=== PATIENT | male | born 1950 | race Caucasian/White ===

== ENCOUNTER 2020-07-14 06:27 | Day surgery (SDC) | payer OTHER ==
[~2020-07-14] VITALS: Ht 175.3 cm; Wt 84.2 kg
[~2020-07-14 06:27] MED LIST: ALBU90OI; ALBU90OI61 INH; ASPI81EC PO; ASPIR 8181 MG PO; ATOR20 PO; AZIT250 PO; Adult Low Dose81 MG PO; CEPH500 PO; FLUT.05NI; Flovent Diskus50 MCG; HYDCHL25 PO; HYDROCHLOROTHIA25 MG PO; IBU800 MG PO; IBUP800 PO; ICAPS AREDS2 C1 EACH PO; METAMUCIL POWD575 GM PO; METO25ER PO; METO50 PO; METO50ER PO; MULVITA; OMEP10ER PO; OMEP20ER PO; OMEPRAZOLE20 M2 PO; ONDA4ODT MM; Omeprazole20 M1 PO; PANT40 PO; PRED20 PO; PROAIR RESPICL90 MCG INH; REVATIO20 MG PO; Roxicodone5 MG PO; Toprol Xl25 MG PO; [UNRECOGNIZED DRUG - CODE]; [UNRECOGNIZED DRUG - OTHER] INJ
--- NOTE | 2020-07-14 06:58 | NUR ---
07/14/20 0658 NELLI GUEVARA pt in bed. iv in place and patent. CONF ALLERGIES AND MEDICATIONS. ENGAGED IN PRE OP TEACHING. ALL QUESTIONS ASKED AND ANSWERED.
== END 2020-07-14 08:10 | disposition home or self-care (01) ==
LOC: ORSCSDS 06:27
PROVIDERS: Ophthalmology
PROC: 08RJ3JZ Replacement of Right Lens with Synthetic Substitute, Percutaneous Approach (ICD-10-PCS; principal; 2020-07-14 07:30)
DX: H25.11 Age-related nuclear cataract, right eye (principal); I10 Essential (primary) hypertension; G47.33 Obstructive sleep apnea (adult) (pediatric); J45.909 Unspecified asthma, uncomplicated; Z79.899 Other long term (current) drug therapy; Z79.82 Long term (current) use of aspirin
CPT/HCPCS: J2001; J2250; J3010; J3301; J7040; V2632

== ENCOUNTER 2020-08-17 06:13 | Day surgery (SDC) | payer OTHER ==
[~2020-08-17] VITALS: Ht 175.3 cm; Wt 83.8 kg
== END 2020-08-17 08:23 | disposition home or self-care (01) ==
LOC: ORSCSDS 06:13
PROVIDERS: Ophthalmology
PROC: 08RK3JZ Replacement of Left Lens with Synthetic Substitute, Percutaneous Approach (ICD-10-PCS; principal; 2020-08-17 07:30)
DX: H25.12 Age-related nuclear cataract, left eye (principal); I10 Essential (primary) hypertension; G47.33 Obstructive sleep apnea (adult) (pediatric); K21.9 Gastro-esophageal reflux disease without esophagitis; Z79.899 Other long term (current) drug therapy
CPT/HCPCS: J2001; J2250; J3010; J3301; J7040; V2632

== ENCOUNTER → 2021-03-17 | Outpatient (CLI) | payer OTHER | LOC: LAB SHORT 10:15 → LAB 10:15 | DX: L02.423 Furuncle of right upper limb (principal); L02.222 Furuncle of back [any part, except buttock and flank]; L82.1 Other seborrheic keratosis; L57.8 Other skin changes due to chronic exposure to nonionizing radiation; L85.3 Xerosis cutis; Z71.89 Other specified counseling; Z88.0 Allergy status to penicillin; Z88.1 Allergy status to other antibiotic agents; Z88.2 Allergy status to sulfonamides | CPT/HCPCS: 87070; 87077; 87147; 87186; 87205 ==

== ENCOUNTER 2021-08-27 11:47 | Inpatient (IN) | payer MEDICARE, OTHER ==
[~2021-08-27] VITALS: Ht 172.7 cm; Wt 86.4 kg
[~2021-08-27 11:47] MED LIST changes: -LEVAQUIN750 MG PO; -LOSA25 PO
[2021-08-27 13:07] LABS: BASOPHILS ABSOLUTE AUTO 0.02 K/mm3 (0.00-0.23); BASOPHILS PERCENT AUTO 0 % (0-2); EOSINOPHILS ABSOLUTE AUTO 0.03 K/mm3 (0.00-0.68); EOSINOPHILS PERCENT AUTO 0 % (0-6); Hematocrit 37.5 % (37.0-53.0); Hemoglobin 13.1 g/dL (13.5-17.5); IMMATURE GRAN ABSOLUTE AUTO 0.05 K/mm3 (0.00-0.10); IMMATURE GRAN PERCENT AUTO 0 % (0-1); LYMPHOCYTES ABSOLUTE AUTO 1.02 K/mm3 (0.84-5.20); LYMPHOCYTES PERCENT AUTO 9 % (21-46); MONOCYTES ABSOLUTE AUTO 1.07 K/mm3 (0.16-1.47); MONOCYTES PERCENT AUTO 9 % (4-13); Mean Corpuscular HGB 33.7 pg (26.0-34.0); Mean Corpuscular HGB Conc 34.9 g/dL (31.5-36.5); Mean Corpuscular Volume 96 fL (80-100); NEUTROPHILS ABSOLUTE AUTO 9.75 K/mm3 (1.96-9.15); NEUTROPHILS PERCENT AUTO 82 % (41-73); Platelet Count 137 K/mm3 (150-400); RDW Coefficient Variation 11.6 % (11.7-14.2); RDW Standard Deviation 40.1 fL (35.1-46.3); Red Blood Cell Count 3.89 M/mm3 (4.30-5.90); White Blood Cell Count 11.94 K/mm3 (4.00-11.30)
[2021-08-27 13:11] LABS: Influenza A, PCR NEGATIVE (NEGATIVE); Influenza B, PCR NEGATIVE (NEGATIVE); Resp Syncytial Virus, PCR NEGATIVE (NEGATIVE); SARS-Cov-2 (COVID-19) PCR, MMC NEGATIVE (NEGATIVE)
[2021-08-27 13:27] LABS: Albumin, Blood 3.9 g/dL (3.4-5.0); Albumin/Globulin Ratio 1.1 (0.8-1.8); Bilirubin, Total 1.6 mg/dL (0.1-1.0); Bun/Creatinine Ratio 19.7 (12.0-20.0); Calcium, Blood 8.6 mg/dL (8.5-10.1); Creatinine, Blood 1.47 mg/dL (0.60-1.20); Globulin, Blood 3.5 g/dL (2.2-4.0); Potassium, Blood 4.5 mmol/L (3.5-5.5); Total Protein, Blood 7.4 g/dL (6.4-8.2)
--- NOTE | 2021-08-28 00:26 | NUR ---
FEBRILE PT TEMPERATURE CHECKED AT MIDNIGHT AND ELEVATED AGAIN AT 102.9 ORALLY. PT WAS SLEEPING PRIOR TO BEING WOKEN TO CHECK TEMPERATURE. ICE PACKS PLACED TO ARMPITS, NECK, AND GROIN. IBUPROFEN 600 MG ADMINISTERED. PT COMPLAINING OF CRAMPS IN LEGS AND RIBS.
--- NOTE | 2021-08-28 04:46 | NUR ---
SHIFT SUMMARY PT NEW ED ADMIT THIS EVENING. FEBRILE UPON ARRIVAL BUT TRENDED DOWN AFTER TORADOL GIVEN IN ED. FEVER RETURNED LATER IN THE EVENING, READING 102.9. MEDICATED W/ 600 MG IBUPROFEN. PT REPORTING SOME CRAMPING IN LEGS AND RIBS WHEN INITIALLY BEING WOKEN TO TAKE TEMPERATURE. LASTED BRIEFLY. TEMPERATURE THIS AM 98.8. NO COMPLAINTS OF NAUSEA OR PAIN. ASIDE FROM INTERMITTENT FEVER VITAL SIGNS HAVE REMAINED STABLE.
--- NOTE | 2021-08-28 05:23 | NUR ---
R SIDE OF NECK/THROAT NOTED TO BE SWOLLEN. NOT AFFECTING PT'S SWALLOWING. PT REPORTS R EAR SWOLLEN THIS AM WELL.
[2021-08-28 07:39] LABS: BASOPHILS ABSOLUTE AUTO 0.02 K/mm3 (0.00-0.23); BASOPHILS PERCENT AUTO 0 % (0-2); EOSINOPHILS ABSOLUTE AUTO 0.02 K/mm3 (0.00-0.68); EOSINOPHILS PERCENT AUTO 0 % (0-6); Hematocrit 33.1 % (37.0-53.0); Hemoglobin 11.6 g/dL (13.5-17.5); IMMATURE GRAN ABSOLUTE AUTO 0.01 K/mm3 (0.00-0.10); IMMATURE GRAN PERCENT AUTO 0 % (0-1); LYMPHOCYTES ABSOLUTE AUTO 0.81 K/mm3 (0.84-5.20); LYMPHOCYTES PERCENT AUTO 15 % (21-46); MONOCYTES PERCENT AUTO 10 % (4-13); Mean Corpuscular HGB 33.7 pg (26.0-34.0); Mean Corpuscular Volume 96 fL (80-100); NEUTROPHILS ABSOLUTE AUTO 3.91 K/mm3 (1.96-9.15); NEUTROPHILS PERCENT AUTO 74 % (41-73); Platelet Count 107 K/mm3 (150-400); RDW Coefficient Variation 11.6 % (11.7-14.2); RDW Standard Deviation 40.3 fL (35.1-46.3); Red Blood Cell Count 3.44 M/mm3 (4.30-5.90); White Blood Cell Count 5.27 K/mm3 (4.00-11.30)
[2021-08-28 08:02] LABS: Alanine Aminotransfer (ALT/SGP 76 U/L (12-78); Albumin, Blood 3.2 g/dL (3.4-5.0); Albumin/Globulin Ratio 0.9 (0.8-1.8); Alk Phos 54 U/L (50-136); Anion Gap 5 mmol/L (6-16); Aspartate Aminotrans (AST/SGOT 55 U/L (12-37); Bilirubin, Total 2.2 mg/dL (0.1-1.0); Blood Urea Nitrogen 21 mg/dL (8-24); Bun/Creatinine Ratio 19.1 (12.0-20.0); CO2, Blood 27 mmol/L (21-32); Calcium, Blood 8.1 mg/dL (8.5-10.1); Chloride, Blood 106 mmol/L (98-108); Globulin, Blood 3.4 g/dL (2.2-4.0); Glomerular Filtration Rate >60 (60-); Glucose, Blood 108 mg/dL (70-99); Potassium, Blood 3.6 mmol/L (3.5-5.5); Sodium, Blood 138 mmol/L (136-145); Total Protein, Blood 6.6 g/dL (6.4-8.2)
[2021-08-28 12:08] LABS: HIV AB/P24 AG SCREEN Non Reactive (Non Reactive)
--- NOTE | 2021-08-28 18:29 | NUR ---
SHIFT SUMMARY PT INDEPENDENT IN ROOM. DRINKING WELL. HIGHEST TEMP TODAY WAS 101.4. IBUPROFEN DECREASED TEMP. REPORTED THIS EVENING BEGINNING TO SWEAT. BP ELEVATED AND SPOKE WITH MD AND MEDICATED. DENIES NAUSEA.
--- NOTE | 2021-08-29 04:43 | NUR ---
SHIFT SUMMARY PT FEELING OVERALL WELL. SWELLING APPEARS WORSE THIS EVENING FROM NIGHT BEFORE. NOW IN NECK, EAR, AND SIDE OF FACE. HOT COMPRESSES PROVIDED AND HEATING PAD TO AID IN DECREASE OF SWELLING. PT USED HEAT OFF AND ON THROUGHOUT THE NIGHT. TEMPERATURE IMPROVED THIS EVENING. SLIGHTLY ELEVATED ONCE AT 100.4 BUT CAME DOWN WELL WITH IBUPROFEN. AFEBRILE WITH OTHER CHECKS. BLOOD PRESSURE IMPROVED. VITAL SIGNS STABLE. WILL CONTINUE TO MONITOR.
[2021-08-29 10:09] LABS: HBSAG SCREEN Negative (Negative); HEP B CORE AB, TOT Negative (Negative); HEP C VIRUS AB <0.1 (0.0-0.9)
[2021-08-29] MEDS ORDERED: LEVAQUIN750 MG PO ×2 (12:38)
[2021-08-29] MEDS ORDERED: LOSA25 PO ×2 (12:39)
--- NOTE | 2021-08-29 15:23 | NUR ---
PT DISCHARGED 1300 WITH DC INSTRUCTIONS. RX FAXED TO [facility] AND PT WILL COMPLETE ABX ORDERED AND OTC PROBIOTICS. IV DC'D X2, RAC AND LF, RAC NOT DOCUMENTED BEING INSERTED. BOTH IV DC'D WNL. SENT HOME WITH BELONGINGS, [facility] STAFF ESCORT OUT TO CAR.
== END 2021-08-29 13:58 | disposition home or self-care (01) | DRG 872 ==
LOC: ER 11:47 → ERHOLD 16:49 → MEDS 18:50 → ENPENDDIS 08-29 11:34 → MEDS 08-29 13:58
PROVIDERS: Family Medicine; Physician Assistant; ADMIT Internal Medicine
DX: A41.9 Sepsis, unspecified organism (principal); E87.2 Acidosis; N17.9 Acute kidney failure, unspecified; R65.20 Severe sepsis without septic shock; Z23 Encounter for immunization; Z20.822 Contact with and (suspected) exposure to COVID-19; R74.01 Elevation of levels of liver transaminase levels; I10 Essential (primary) hypertension; J45.909 Unspecified asthma, uncomplicated; E78.5 Hyperlipidemia, unspecified; K11.21 Acute sialoadenitis; Z87.442 Personal history of urinary calculi; Z90.49 Acquired absence of other specified parts of digestive tract; Z90.89 Acquired absence of other organs; Z88.0 Allergy status to penicillin; Z88.1 Allergy status to other antibiotic agents; Z88.2 Allergy status to sulfonamides; Z88.8 Allergy status to other drugs, medicaments and biological substances; Z79.82 Long term (current) use of aspirin; Z79.899 Other long term (current) drug therapy
CPT/HCPCS: 0241U; 36415; 70491; 71045; 74176; 76536; 80053; 83605; 83690; 84145; 85025; 85379; 85651; 86038; 86140; 86308; 86317; 86644; 86645; 86704; 86708; 86735; 86803; 87040; 87340; 87389; 90686; 93005; 93010; 96374; 99285-25; A9270; G0008; G0378; J1885; J7030; J7120; Q9967

== ENCOUNTER → 2021-08-27 | Outpatient (CLI) | payer OTHER ==
[~2021-08-27] MED LIST changes: +LEVAQUIN750 MG PO; +LOSA25 PO
[2021-08-27 10:26] LABS: BASOPHILS ABSOLUTE AUTO 0.03 K/mm3 (0.00-0.23); BASOPHILS PERCENT AUTO 0 % (0-2); EOSINOPHILS ABSOLUTE AUTO 0.08 K/mm3 (0.00-0.68); EOSINOPHILS PERCENT AUTO 1 % (0-6); Hematocrit 39.8 % (37.0-53.0); Hemoglobin 14.1 g/dL (13.5-17.5); IMMATURE GRAN ABSOLUTE AUTO 0.04 K/mm3 (0.00-0.10); IMMATURE GRAN PERCENT AUTO 0 % (0-1); LYMPHOCYTES ABSOLUTE AUTO 1.04 K/mm3 (0.84-5.20); LYMPHOCYTES PERCENT AUTO 9 % (21-46); MONOCYTES ABSOLUTE AUTO 0.91 K/mm3 (0.16-1.47); MONOCYTES PERCENT AUTO 8 % (4-13); Mean Corpuscular HGB 33.4 pg (26.0-34.0); Mean Corpuscular HGB Conc 35.4 g/dL (31.5-36.5); Mean Corpuscular Volume 94 fL (80-100); Mean Platelet Volume 9.6 fL (9.1-12.4); NEUTROPHILS ABSOLUTE AUTO 9.36 K/mm3 (1.96-9.15); NEUTROPHILS PERCENT AUTO 82 % (41-73); Platelet Count 158 K/mm3 (150-400); RDW Coefficient Variation 11.6 % (11.7-14.2); RDW Standard Deviation 39.4 fL (35.1-46.3); Red Blood Cell Count 4.22 M/mm3 (4.30-5.90); White Blood Cell Count 11.46 K/mm3 (4.00-11.30)
[2021-08-27 10:42] LABS: Albumin, Blood 4.4 g/dL (3.4-5.0); Albumin/Globulin Ratio 1.2 (0.8-1.8); Bilirubin, Total 1.6 mg/dL (0.1-1.0); Bun/Creatinine Ratio 15.8 (12.0-20.0); Calcium, Blood 9.1 mg/dL (8.5-10.1); Creatinine, Blood 1.65 mg/dL (0.60-1.20); Globulin, Blood 3.7 g/dL (2.2-4.0); Potassium, Blood 4.7 mmol/L (3.5-5.5); Total Protein, Blood 8.1 g/dL (6.4-8.2)
== END ==
LOC: LAB SHORT 10:20
PROVIDERS: Physician Assistant Medical
DX: R50.9 Fever, unspecified (principal); R59.0 Localized enlarged lymph nodes
CPT/HCPCS: 80053; 83605; 85025

== ENCOUNTER → 2021-09-06 | Outpatient (CLI) | payer MEDICARE, OTHER ==
[~2021-09-06] MED LIST changes: +LEVAQUIN750 MG PO; +LOSA25 PO
[2021-09-06 19:14] LABS: BASOPHILS ABSOLUTE AUTO 0.03 K/mm3 (0.00-0.23); BASOPHILS PERCENT AUTO 0 % (0-2); EOSINOPHILS ABSOLUTE AUTO 0.24 K/mm3 (0.00-0.68); EOSINOPHILS PERCENT AUTO 3 % (0-6); Hematocrit 35.7 % (37.0-53.0); Hemoglobin 12.6 g/dL (13.5-17.5); IMMATURE GRAN ABSOLUTE AUTO 0.13 K/mm3 (0.00-0.10); IMMATURE GRAN PERCENT AUTO 2 % (0-1); LYMPHOCYTES ABSOLUTE AUTO 2.02 K/mm3 (0.84-5.20); LYMPHOCYTES PERCENT AUTO 25 % (21-46); MONOCYTES PERCENT AUTO 10 % (4-13); Mean Corpuscular HGB 33.1 pg (26.0-34.0); Mean Corpuscular HGB Conc 35.3 g/dL (31.5-36.5); Mean Corpuscular Volume 94 fL (80-100); Mean Platelet Volume 10.6 fL (9.1-12.4); NEUTROPHILS ABSOLUTE AUTO 4.83 K/mm3 (1.96-9.15); NEUTROPHILS PERCENT AUTO 60 % (41-73); Platelet Count 234 K/mm3 (150-400); RDW Coefficient Variation 11.8 % (11.7-14.2); Red Blood Cell Count 3.81 M/mm3 (4.30-5.90); White Blood Cell Count 8.05 K/mm3 (4.00-11.30)
[2021-09-06 19:47] LABS: Alanine Aminotransfer (ALT/SGP 61 U/L (12-78); Albumin, Blood 3.9 g/dL (3.4-5.0); Albumin/Globulin Ratio 1.2 (0.8-1.8); Alk Phos 54 U/L (50-136); Anion Gap 8 mmol/L (6-16); Aspartate Aminotrans (AST/SGOT 51 U/L (12-37); Bilirubin, Total 1.4 mg/dL (0.1-1.0); Blood Urea Nitrogen 18 mg/dL (8-24); CO2, Blood 27 mmol/L (21-32); Calcium, Blood 9.3 mg/dL (8.5-10.1); Chloride, Blood 104 mmol/L (98-108); Globulin, Blood 3.3 g/dL (2.2-4.0); Glomerular Filtration Rate >60 (60-); Glucose, Blood 101 mg/dL (70-99); Sodium, Blood 139 mmol/L (136-145); Total Protein, Blood 7.2 g/dL (6.4-8.2)
== END ==
LOC: LAB SHORT 14:50
PROVIDERS: Hospitalist
DX: N17.0 Acute kidney failure with tubular necrosis (principal); K11.20 Sialoadenitis, unspecified; I10 Essential (primary) hypertension
CPT/HCPCS: 80053; 85025

== ENCOUNTER → 2022-05-22 | Outpatient (CLI) | payer OTHER ==
[2022-05-22 17:24] LABS: Very Low Density Lipoprot Chol 61 mg/dL (6-32)
[2022-05-22 17:41] LABS: Alanine Aminotransfer (ALT/SGP 54 U/L (12-78); Albumin, Blood 4.1 g/dL (3.4-5.0); Albumin/Globulin Ratio 1.1 (0.8-1.8); Alk Phos 52 U/L (50-136); Anion Gap 6 mmol/L (6-16); Aspartate Aminotrans (AST/SGOT 46 U/L (12-37); Bilirubin, Total 0.8 mg/dL (0.1-1.0); Blood Urea Nitrogen 33 mg/dL (8-24); Bun/Creatinine Ratio 23.9 (12.0-20.0); CHOL/HDL RATIO 3.2; CO2, Blood 27 mmol/L (21-32); Calcium, Blood 9.3 mg/dL (8.5-10.1); Chloride, Blood 105 mmol/L (98-108); Cholesterol 152 mg/dL (50-200); Creatinine, Blood 1.38 mg/dL (0.60-1.20); Globulin, Blood 3.6 g/dL (2.2-4.0); Glomerular Filtration Rate 55 (60-); Glucose, Blood 92 mg/dL (70-99); HDL Cholesterol 48 mg/dL (>39); LDL/HDL RATIO 0.9; Low Density Lipoprotein Chol 43 mg/dL (0-110); Potassium, Blood 3.8 mmol/L (3.5-5.5); Sodium, Blood 138 mmol/L (136-145); Total Protein, Blood 7.7 g/dL (6.4-8.2); Triglycerides 305 mg/dL (30-160)
== END | disposition home or self-care (01) ==
LOC: LAB SHORT 13:14 → LAB 13:14
PROVIDERS: Hospitalist
DX: Z12.5 Encounter for screening for malignant neoplasm of prostate (principal); E78.00 Pure hypercholesterolemia, unspecified; I10 Essential (primary) hypertension
CPT/HCPCS: 80053; 80061; G0103

== ENCOUNTER → 2022-11-29 | Outpatient (CLI) | payer OTHER | LOC: LAB SHORT 14:16 → LAB 14:16 | DX: L08.9 Local infection of the skin and subcutaneous tissue, unspecified (principal) | CPT/HCPCS: 87070; 87077; 87186 ==

== ENCOUNTER → 2024-07-02 | Outpatient (CLI) | payer OTHER | LOC: LAB SHORT 10:45 → LAB 10:45 | DX: M10.071 Idiopathic gout, right ankle and foot (principal) | CPT/HCPCS: 84550 ==

== ENCOUNTER → 2024-08-21 | Outpatient (CLI) | payer OTHER ==
[2024-08-21 19:29] LABS: Anion Gap 9 mmol/L (3-11); Blood Urea Nitrogen 16 mg/dL (8-24); Bun/Creatinine Ratio 14.3 (12.0-20.0); CHOL/HDL RATIO 3.4; CO2, Blood 28 mmol/L (21-32); Calcium, Blood 9.6 mg/dL (8.5-10.1); Chloride, Blood 105 mmol/L (98-108); Cholesterol 155 mg/dL (50-200); Creatinine, Blood 1.12 mg/dL (0.60-1.20); Glomerular Filtration Rate 69 (60-); Glucose, Blood 96 mg/dL (70-99); HDL Cholesterol 46 mg/dL (>39); LDL/HDL RATIO 1.5; Low Density Lipoprotein Chol 71 mg/dL (0-110); Sodium, Blood 138 mmol/L (136-145); Triglycerides 190 mg/dL (30-160); Very Low Density Lipoprot Chol 38 mg/dL (6-32)
== END | disposition home or self-care (01) ==
LOC: LAB 17:26 → LAB SHORT 17:26
PROVIDERS: Hospitalist
DX: E78.00 Pure hypercholesterolemia, unspecified (principal); I10 Essential (primary) hypertension
CPT/HCPCS: 80048; 80061